=== PATIENT | female | born 1985 | race Caucasian/White ===

== ENCOUNTER 2016-12-07 10:45 | Emergency (ER) | payer OTHER ==
[~2016-12-07] VITALS: Ht 160 cm; Wt 54.0 kg
[~2016-12-07 10:45] MED LIST: ALBU6.7H INH; IBUP-238 PO; OXYC-360 PO; PREN0.01 PO
[2016-12-07 10:47] VITALS: BP 125/71; PULSE 83; RESP 20; TEMP 97.5; O2SAT 99
--- NOTE | 2016-12-07 12:23 | PD ---
HPI Chief Complaint: Related Problem Time Seen by Provider: 12:17 Travel History International Travel<30 days: No Contact w/Intl Traveler<30days: No Traveled to known affect area: No History of Present Illness HPI Patient is a 31-year-old female presenting to the emergency department for evaluation of nausea, vomiting, weakness. Patient reports being approximately 7 weeks . She reports being unable to keep down food or fluids. When she does eat only thing she is able to tolerate small amounts is starchy bland foods. She reports being weak and lying in bed for the last 5 days due to the weakness. She has been taking Zofran with no relief of her symptoms. She reports a 4-5 pound weight loss over that same time period. She also reported lower abdominal pain which she is attributing to round ligament pain. This is her third , she is not having any cramping, vaginal discharge, vaginal bleeding. She has not had a bowel movement in several days as well. Patient's past medical history significant for gestational diabetes, asthma, esophageal strictures, hypotension, anxiety, depression. Her NAILHEAD PUNCHER is Dr. Barragan at [facility]. She has not seen her for this , but she was advised to come to the emergency department due to the weakness by her office. [facility] Past Medical History Asthma: Yes Anxiety: Yes Depression: Yes Diabetes: Yes (gestational) Gastrointestinal Disorders: Yes (esophageal stricture) Medical other: Yes (hypotension the patient's report.) ?: LMP: 10/16/16 : 0 Past Surgical History Section: Yes (2) Other Surgery: Yes (upper endoscopy 2) Social History Alcohol Use: No (2 DRINKS PER WEEK) Tobacco Use: No (1/2 PK PER DAY) Substance Use: No Allergies-Medications (Allergen,Severity, Reaction): Coded Allergies: Adhesives (Verified Allergy, Severe, Rash, 12/07/16) Pork (Verified Allergy, Severe, Diarrhea, 12/07/16) Reported Meds & Prescriptions Reported Meds & Active Scripts Active Zofran (Ondansetron HCl) 4 Mg Tab 4 Mg PO Q6HR PRN Reported Effexor XR 24 HR (Venlafaxine HCl) 75 Mg Cap 75 Mg PO DAILY Review of Systems Except as stated in HPI: all other systems reviewed are Neg General / Constitutional: No: Fever, Chills HENT: No: Headaches Cardiovascular: No: Chest Pain or Discomfort Respiratory: No: Shortness of Breath Gastrointestinal: Positive: Nausea, Vomiting, Abdominal Pain, Constipation Genitourinary: No: Dysuria Neurologic: Positive: Weakness Physical Exam Narrative GENERAL: Thin, well-developed, alert female. Resting comfortably in no acute distress. at bedside. SKIN: Warm and dry. HEAD: Atraumatic. Normocephalic. EYES: Pupils equal and round. No scleral icterus. No injection or drainage. ENT: No nasal bleeding or discharge. Mucous membranes pink and moist. NECK: Trachea midline. No JVD. CARDIOVASCULAR: Regular rate and rhythm. No murmur appreciated. RESPIRATORY: No accessory muscle use. Clear to auscultation. Breath sounds equal bilaterally. GASTROINTESTINAL: Abdomen soft, non-tender, nondistended. Hepatic and splenic margins not palpable. MUSCULOSKELETAL: No obvious deformities. No clubbing. No cyanosis. No edema. NEUROLOGICAL: Awake and alert. No obvious cranial nerve deficits. Motor grossly within normal limits. Normal speech. PSYCHIATRIC: Appropriate mood and affect; insight and judgment normal. Data Data Last Documented VS Vital Signs Date Time Temp Pulse Resp B/P Pulse Ox O2 Delivery O2 Flow Rate FiO2 12/07/16 10:47 97.5 83 20 125/71 99 Room Air Orders Complete Blood Count With Diff (12/07/16 12:10) Comprehensive Metabolic Panel (12/07/16 12:10) Urinalysis - C+S If Indicated (12/07/16 12:10) Beta Hcg (Quant/Titer) (12/07/16 12:10) Ed Urine Pregnancytest Poc (12/07/16 12:10) Magnesium (Mg) (12/07/16 12:10) Ondansetron Inj (Zofran Inj) (12/07/16 13:00) Sodium Chlor 0.9% 1000 Ml Inj (Ns 1000 M (12/07/16 12:52) Labs Laboratory Tests Test 12/07/16 12/07/16 12:15 12:25 Urine Color LIGHT-YELLOW Urine Turbidity CLEAR Urine pH 6.5 Urine Specific [place] 1.003 Urine Protein NEG mg/dL Urine Glucose (UA) NEG mg/dL Urine Ketones NEG mg/dL Urine Occult Blood NEG Urine Nitrite NEG Urine Bilirubin NEG Urine Urobilinogen LESS THAN 2.0 MG/DL Urine Leukocyte Esterase NEG Urine RBC LESS THAN 1 /hpf Urine Squamous Epithelial <1 /hpf Cells Microscopic Urinalysis Comment CULT NOT INDICATED White Blood Count 10.6 TH/MM3 Red Blood Count 4.56 MIL/MM3 Hemoglobin 13.9 GM/DL Hematocrit 41.3 % Mean Corpuscular Volume 90.7 FL Mean Corpuscular Hemoglobin 30.5 PG Mean Corpuscular Hemoglobin 33.6 % Concent Red Cell Distribution Width 12.9 % Platelet Count 249 TH/MM3 Mean Platelet Volume 8.3 FL Neutrophils (%) (Auto) 69.6 % Lymphocytes (%) (Auto) 21.9 % Monocytes (%) (Auto) 8.1 % Eosinophils (%) (Auto) 0.2 % Basophils (%) (Auto) 0.2 % Neutrophils # (Auto) 7.4 TH/MM3 Lymphocytes # (Auto) 2.3 TH/MM3 Monocytes # (Auto) 0.9 TH/MM3 Eosinophils # (Auto) 0.0 TH/MM3 Basophils # (Auto) 0.0 TH/MM3 CBC Comment DIFF FINAL Differential Comment Sodium Level 139 MEQ/L Potassium Level 4.0 MEQ/L Chloride Level 102 MEQ/L Carbon Dioxide Level 27.8 MEQ/L Anion Gap 9 MEQ/L Blood Urea Nitrogen 8 MG/DL Creatinine 0.57 MG/DL Estimat Glomerular Filtration 125 ML/MIN Rate Random Glucose 75 MG/DL Calcium Level 9.2 MG/DL Magnesium Level 2.1 MG/DL Total Bilirubin 0.3 MG/DL Aspartate Amino Transf 8 U/L (AST/SGOT) Alanine Aminotransferase 18 U/L (ALT/SGPT) Alkaline Phosphatase 62 U/L Total Protein 7.4 GM/DL Albumin 3.8 GM/DL Human Chorionic Gonadotropin, 17868 MIU/ML Quant [facility] Medical Decision Making Medical Screen Exam Complete: Yes Emergency Medical Condition: Yes Interpretation(s) Vital Signs Date Time Temp Pulse Resp B/P Pulse Ox O2 Delivery O2 Flow Rate FiO2 12/07/16 10:47 97.5 83 20 125/71 99 Room Air Differential Diagnosis Gastroenteritis versus hyperemesis gravidarum versus morning sickness versus electrolyte abnormality versus other Narrative Course Patient is a 31-year-old female presenting to emergency department for evaluation of weakness, nausea, vomiting. Patient was sent by her NAILHEAD PUNCHER's office. She is a patient of Dr. Barragan at [place]. She denies any history of hyperemesis gravidarum. Patient's vital signs are stable. Workup initiated in triage, care of patient will be transferred to provider when medical bed is available. Scripts Ondansetron (Zofran)4 Mg Tab4 Mg PO Q6HR PRN (NAUSEA OR VOMITING) #15 TAB Ref 0 Prov:Donna Malone DO 12/07/16 Meredith Ayon Dec 07, 2016 12:23
[2016-12-07] MEDS ORDERED: VENL75XR PO (12:29)
[2016-12-07 12:42] LABS: AUTOMATED NEUTROPHIL # 7.4 TH/MM3 (1.8-7.7); BASOPHIL % 0.2 % (0.0-2.0); EOSINOPHIL % 0.2 % (0.0-4.0); HEMATOCRIT 41.3 % (35.0-46.0); HEMO FLAGS DIFF FINAL; LYMPH % 21.9 % (9.0-44.0); LYMPHOCYTE # 2.3 TH/MM3 (1.0-4.8); MEAN CELL VOLUME 90.7 FL (80.0-100.0); MEAN CORPUSCULAR HEMOGLOBIN 30.5 PG (27.0-34.0); MEAN CORPUSCULAR HGB CONC 33.6 % (32.0-36.0); MONO % 8.1 % (0.0-8.0); NEUT % 69.6 % (16.0-70.0); PLATELET COUNT 249 TH/MM3 (150-450); RED BLOOD COUNT 4.56 MIL/MM3 (4.00-5.30); RED CELL DISTRIBUTION WIDTH 12.9 % (11.6-17.2); WHITE BLOOD COUNT 10.6 TH/MM3 (4.0-11.0)
[2016-12-07] MEDS ORDERED: SODIUM CHLOR 0.9% 1000 ML INJ 1,000 ML IV SCH (12:52)
[2016-12-07 13:00] LABS: BLOOD, URINE NEG (NEG); GLUCOSE,URINE NEG (NEG); KETONE, URINE NEG (NEG); NITRITE,URINE NEG (NEG); PH, URINE 6.5 (5.0-8.5); SQUAMOUS EPITHELIAL CELL URINE <1 /hpf (0-5); URINE COLOR LIGHT-YELLOW (YELLW/STRAW)
[2016-12-07] MEDS ORDERED: ONDANSETRON HCL 4 MG/2 ML VIAL IVP ONE (13:00)
[2016-12-07 13:01] LABS: ANION GAP 9 MEQ/L (5-15); AST (GOT) 8 U/L (15-37); BICARBONATE 27.8 MEQ/L (21.0-32.0); BLOOD UREA NITROGEN 8 MG/DL (7-18); CHLORIDE 102 MEQ/L (98-107); GLOMERULAR FILTRATION RATE 125 ML/MIN (>89); MAGNESIUM 2.1 MG/DL (1.5-2.5); SODIUM (NA) 139 MEQ/L (136-145)
--- NOTE | 2016-12-07 13:02 | PD ---
Physical Exam Time Seen by Provider: 13:00 Narrative 31-year-old female approximately 7 weeks presents to the emergency department for evaluation of weakness, nausea and vomiting. Patient was seen by provider in triage were initiated workup, please see her documentation. The patient states for the past 5 days she's had weakness and basically been lying in bed past 5 days. States that she has had nausea and vomiting but was prescribed Zofran by her brick grader 3 days ago which did improve her vomiting. States that she has been able to eat and drink but very little. States that her last bowel movement was 2 days ago and was small. States that she has some epigastric crampy abdominal pain. Denies any fever, chills, diarrhea, vaginal discharge, vaginal bleeding, burning with urination, painful urination, hematuria. Prior abdominal surgeries include sections 2. CHILDREN'S TUTOR is Dr. Barragan. No other complaints. GENERAL: Well-nourished and well-developed pleasant female patient in no acute distress. SKIN: Warm and dry. HEAD: Normocephalic and atraumatic. EYES: No injection, drainage, or hyphema noted. PERRLA. EOMI. ENT: No nasal drainage noted. Oropharynx is clear. NECK: Supple and the trachea is midline. CARDIOVASCULAR: Regular rate and rhythm. RESPIRATORY: Breath sounds are equal bilaterally with no accessory muscle use, wheezing, rhonchi, or crackles. GASTROINTESTINAL: Abdomen is soft, non-tender, and nondistended. No rebound tenderness or guarding. MUSCULOSKELETAL: No obvious deformities, swelling, cyanosis, or ecchymosis is present throughout the upper and lower extremities. Patient has full range of motion without any signs of neurovascular compromise. NEUROLOGICAL: Awake, alert, and oriented. Normal speech and gait. Cranial nerves are grossly intact. Data Data Last Documented VS Vital Signs Date Time Temp Pulse Resp B/P Pulse Ox O2 Delivery O2 Flow Rate FiO2 12/07/16 10:47 97.5 83 20 125/71 99 Room Air Orders Complete Blood Count With Diff (12/07/16 12:10) Comprehensive Metabolic Panel (12/07/16 12:10) Urinalysis - C+S If Indicated (12/07/16 12:10) Beta Hcg (Quant/Titer) (12/07/16 12:10) Ed Urine Pregnancytest Poc (12/07/16 12:10) Magnesium (Mg) (12/07/16 12:10) Ondansetron Inj (Zofran Inj) (12/07/16 13:00) Sodium Chlor 0.9% 1000 Ml Inj (Ns 1000 M (12/07/16 12:52) Labs Laboratory Tests Test 12/07/16 12/07/16 12:15 12:25 Urine Color LIGHT-YELLOW Urine Turbidity CLEAR Urine pH 6.5 Urine Specific [place] 1.003 Urine Protein NEG mg/dL Urine Glucose (UA) NEG mg/dL Urine Ketones NEG mg/dL Urine Occult Blood NEG Urine Nitrite NEG Urine Bilirubin NEG Urine Urobilinogen LESS THAN 2.0 MG/DL Urine Leukocyte Esterase NEG Urine RBC LESS THAN 1 /hpf Urine Squamous Epithelial <1 /hpf Cells Microscopic Urinalysis Comment CULT NOT INDICATED White Blood Count 10.6 TH/MM3 Red Blood Count 4.56 MIL/MM3 Hemoglobin 13.9 GM/DL Hematocrit 41.3 % Mean Corpuscular Volume 90.7 FL Mean Corpuscular Hemoglobin 30.5 PG Mean Corpuscular Hemoglobin 33.6 % Concent Red Cell Distribution Width 12.9 % Platelet Count 249 TH/MM3 Mean Platelet Volume 8.3 FL Neutrophils (%) (Auto) 69.6 % Lymphocytes (%) (Auto) 21.9 % Monocytes (%) (Auto) 8.1 % Eosinophils (%) (Auto) 0.2 % Basophils (%) (Auto) 0.2 % Neutrophils # (Auto) 7.4 TH/MM3 Lymphocytes # (Auto) 2.3 TH/MM3 Monocytes # (Auto) 0.9 TH/MM3 Eosinophils # (Auto) 0.0 TH/MM3 Basophils # (Auto) 0.0 TH/MM3 CBC Comment DIFF FINAL Differential Comment Sodium Level 139 MEQ/L Potassium Level 4.0 MEQ/L Chloride Level 102 MEQ/L Carbon Dioxide Level 27.8 MEQ/L Anion Gap 9 MEQ/L Blood Urea Nitrogen 8 MG/DL Creatinine 0.57 MG/DL Estimat Glomerular Filtration 125 ML/MIN Rate Random Glucose 75 MG/DL Calcium Level 9.2 MG/DL Magnesium Level 2.1 MG/DL Total Bilirubin 0.3 MG/DL Aspartate Amino Transf 8 U/L (AST/SGOT) Alanine Aminotransferase 18 U/L (ALT/SGPT) Alkaline Phosphatase 62 U/L Total Protein 7.4 GM/DL Albumin 3.8 GM/DL Human Chorionic Gonadotropin, 155[address] MIU/ML Quant MDM Supervised Visit with STEPHANIE: No Differential Diagnosis Dehydration versu electrolyte abnormality versus UTI versus early Narrative Course 31-year-old female presents the emergency department for evaluation of weakness for 5 days with nausea and vomiting in early . Patient is afebrile, vital signs are stable. Abdominal examination is benign. She's had no bleeding or spotting. IV access is obtained, labs were drawn and sent. Patient is administered IV fluids and Zofran. CBC is unremarkable. CMP is unremarkable. Urinalysis unremarkable. Patient has remained stable without complaint here in the emergency department. I did discuss the patient with her CHILDREN'S TUTOR and she recommends discharge and follow-up as an outpatient. The patient verbalizes understanding and is in agreement with the treatment plan. I discussed the case with my attending physician Dr. Malone who is aware of the patients history, physical examination findings, and treatment plan. Physician Communication Physician Communication I spoke with Dr. Barragan the patient's CHILDREN'S TUTOR regarding the patient's presentation and unremarkable lab findings. She recommended IV fluids and patient can be discharged follow-up in the office. Diagnosis Primary Impression: Generalized weakness Additional Impression: Qualified Code: Z3A.01 - Less than 8 weeks gestation of Referrals: Jo Barragan MD Patient Instructions: First Trimester (ED), General Instructions, Weakness (ED) Additional Instruction: Follow-up with Dr. Barragan in the office as scheduled. Return to the ED for any acute worsening of symptoms. Med/Other Pt SpecificInfo: Prescription(s) given Disposition: 01 DISCHARGE HOME Condition: Stable Tashia Veliz Dec 07, 2016 13:02
[2016-12-07 13:13] LABS: COMMENT (UR) CULT NOT INDICATED; CULTURE IF INDICATED CULT NOT INDICATED
[2016-12-07 13:18] LABS: ALKALINE PHOSPHATASE 62 U/L (45-117); ALT (GPT) 18 U/L (10-53); BETA HCG QUANT 53602 MIU/ML (0-5); TOTAL BILIRUBIN ADULT 0.3 MG/DL (0.2-1.0)
[2016-12-07] MEDS ORDERED: ZOFR4TAB PO (13:36)
== END 2016-12-07 14:11 | disposition home or self-care (01) ==
LOC: NEPC 10:45
DX: O26.891 Other specified pregnancy related conditions, first trimester (principal); R53.1 Weakness; R10.30 Lower abdominal pain, unspecified; O21.9 Vomiting of pregnancy, unspecified; Z87.09 Personal history of other diseases of the respiratory system; Z86.59 Personal history of other mental and behavioral disorders; Z87.19 Personal history of other diseases of the digestive system; Z3A.01 Less than 8 weeks gestation of pregnancy
CPT/HCPCS: 80053; 81001; 83735; 84702; 84703; 85025; 96374; 99284; J2405; J7030

== ENCOUNTER 2017-04-07 12:17 | Inpatient (IN) | payer MEDICAID ==
[~2017-04-07] VITALS: Ht 160 cm; Wt 75.0 kg
[~2017-04-07 12:17] MED LIST changes: -ALBU6.7H INH; -IBUP-238 PO; -OXYC-360 PO; -PREN0.01 PO; +VENL75XR PO; +ZOFR4TAB PO
--- NOTE | 2017-07-14 13:05 | MH ---
cc: KAT MOREAU DATE OF ADMISSION 07/16/2017 HISTORY OF PRESENT ILLNESS This is a 31-year-old 3, para 2 intrauterine at 39 weeks, previous x2 for repeat with a tubal ligation. care has been with [facility] uncomplicated. Group B strep was negative. GCT was 66. PAST OB HISTORY Significant for a x2. 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 She had a normal Pap smear in December 2016. PAST MEDICAL HISTORY Significant for: 1. Major depression 2. She has a history of asthma. PAST SURGICAL HISTORY x2 MEDICATIONS She takes Vitamins and Effexor. ALLERGIES She has no known drug allergies. PHYSICAL EXAM VITAL SIGNS: Stable. She is afebrile. Blood pressure is 120/64. She is 177 pounds. HEAD, HEART, CHEST AND LUNG: Exams are within normal limits. ABDOMEN: Soft, nontender, gravid. PELVIC: Long, closed and posterior. EXTREMITIES: No edema, cyanosis or clubbing, nontender. ASSESSMENT/PLAN She is a 31-year-old, gravid 3, para 2 intrauterine at 39 weeks for a repeat and tubal ligation. The risks, benefits, and alternatives have been explained to the patient and all of her questions have been answered. MD JETHRO Hardwick/OTONIEL /12:42 PM /12:49 PM AWILDA
[2017-07-16] MEDS ORDERED: LACTATED RINGER'S 1000 ML IV ONE (06:15)
[2017-07-16] MEDS ORDERED: CITRIC ACID-SODIUM CITRATE LIQ 30 ML UDC PO SCH (06:15)
[2017-07-16] MEDS ORDERED: ceFAZolin 1,000 MG/NS 100 ML IV SCH ×2 (06:15)
[2017-07-16] MEDS ORDERED: LACTATED RINGER'S 1000 ML IV SCH (06:15)
[2017-07-16 06:19] VITALS: BP 113/67; PULSE 87
[2017-07-16] MEDS ORDERED: PREN29TA PO (06:27)
[2017-07-16 06:30] VITALS: RESP 18; TEMP 97.7
[2017-07-16 06:46] VITALS: BP 109/68; PULSE 86
[2017-07-16 07:26] LABS: BASOPHIL # 0.1 TH/MM3 (0-0.2); BASOPHIL % 0.5 % (0.0-2.0); EOSINOPHIL # 0.7 TH/MM3 (0-0.4); EOSINOPHIL % 4.3 % (0.0-4.0); HEMATOCRIT 38.2 % (35.0-46.0); HEMO FLAGS DIFF FINAL; LYMPH % 17.8 % (9.0-44.0); MEAN CELL VOLUME 95.3 FL (80.0-100.0); MEAN CORPUSCULAR HGB CONC 33.6 % (32.0-36.0); MONO % 6.7 % (0.0-8.0); NEUT % 70.7 % (16.0-70.0); PLATELET COUNT 257 TH/MM3 (150-450); RED CELL DISTRIBUTION WIDTH 13.3 % (11.6-17.2)
[2017-07-16 07:30] LABS: BACTERIA, URINE RARE /hpf; BLOOD, URINE NEG (NEG); COMMENT (UR) CULT NOT INDICATED; CULTURE IF INDICATED CULT NOT INDICATED; GLUCOSE,URINE NEG (NEG); KETONE, URINE NEG (NEG); MUCUS URINE FEW /lpf (OCC); NITRITE,URINE NEG (NEG); SQUAMOUS EPITHELIAL CELL URINE 1 /hpf (0-5); URINE COLOR LIGHT-YELLOW (YELLW/STRAW)
[2017-07-16] MEDS ORDERED: KETOROLAC TROMETHAMINE 60 MG/2 ML (IM) VIAL IM PRN (08:30)
[2017-07-16] MEDS ORDERED: ONDANSETRON HCL 4 MG/2 ML VIAL IV PUSH PRN (08:30)
[2017-07-16] MEDS ORDERED: SODIUM CHLORIDE 0.9% FLUSH 10 ML FLUSH IV FLUSH PRN (08:30)
[2017-07-16] MEDS ORDERED: SIMETHICONE 80 MG CHEWABLE TAB PO PRN (08:30)
[2017-07-16] MEDS ORDERED: SERTRALINE HCL 50 MG TAB PO ONE (08:30)
[2017-07-16] MEDS ORDERED: ZOLPIDEM TARTRATE 5 MG TAB PO PRN (08:30)
[2017-07-16] MEDS ORDERED: OXYTOCIN 30 UNITS-500ML PREMIX 500 ML IV ONE (08:30)
[2017-07-16] MEDS ORDERED: SODIUM CHLORIDE 0.9% FLUSH 10 ML FLUSH IV FLUSH SCH (09:00)
--- NOTE | 2017-07-16 09:01 | MP ---
cc: KAT BARRAGAN DATE OF SURGERY: 07/16/2017 PREOPERATIVE DIAGNOSIS Intrauterine at 39 weeks, previous section, desires repeat section and permanent sterilization. POSTOPERATIVE DIAGNOSIS Intrauterine at 39 weeks, previous section, desires repeat section and permanent sterilization. PROCEDURE 1. Repeat lower segment transverse section via Pfannenstiel skin incision. 2. Bilateral tubal ligation via modified [place]. SURGEON Dr. Barragan. ANESTHESIA Spinal. FLUIDS 700 cc crystalloid. ESTIMATED BLOOD LOSS 650 cc. URINE OUTPUT 75 cc clear yellow at the end of the procedure. FINDINGS A live male was delivered vertex presentation. weight was 3340 grams (7 pounds 6 ounces), Apgars 8 at one minute and 9 at five minutes. Time of delivery was 0755. DETAILS OF PROCEDURE The patient was taken to the operating room where spinal anesthesia was found to be adequate. She was prepped and draped in a normal sterile fashion in the dorsal supine position with a leftward tilt. A Pfannenstiel skin incision was made with a scalpel and carried down to the underlying layer of fascia. The fascia was nicked in the midline and the incision was extended laterally with curved Andre scissors. Attention was turned to the inferior aspect of the incision which was grasped with Jessica clamps, elevated, and the rectus muscles dissected off sharply. Attention was turned to the superior aspect of the incision which was grasped with Jessica clamps, elevated and the rectus muscles dissected off sharply. The rectus muscles were in the midline. The peritoneum was identified, grasped between two Yvette clamps, elevated and entered sharply with Metzenbaum scissors. This incision was extended superiorly and inferiorly with good visualization of the bladder. A bladder blade was inserted. The vesicouterine peritoneum was identified, grasped with pickups and entered sharply with Metzenbaum scissors. This incision was extended laterally and the bladder flap created sharply. The lower uterine segment was incised in a transverse fashion with a scalpel. This was extended laterally with bandage scissors. Clear amniotic fluid was noted. The vertex was delivered. The oral and nasopharynx were bulb suctioned with a syringe. The shoulders were delivered atraumatically. The cord was clamped x2 and cut. The was handed off to the awaiting nurse. The placenta was delivered manually and sent for donation. The uterus was cleared of all clots and debris. The uterus was closed in two layers with #1 Vicryl. Hemostasis was assured. The bladder flap was closed in a running fashion with 3-0 chromic. The left fallopian tube was identified, brought to the incision, grasped with a [place] clamp, followed out to the fimbriated end. A 2 cm portion was tied x2 with 0 plain, excised and sent to pathology. The tube was returned to the abdomen. The right fallopian tube was identified, grasped with a [place] clamp, followed out to the fimbriated end. A 2 cm portion was tied x2 with 0 plain and excised in a similar fashion. Hemostasis was assured. The tube was returned to the abdomen. The gutters were cleared of all clots and debris. The peritoneum was re-approximated in the midline with a single suture of 3-0 chromic. The fascia was re-approximated in a running fashion with 0 Vicryl. The skin was closed with kasandra. A pressure dressing was applied. The patient was transferred to the recovery room in stable condition. The sponge, lap, needle and instrument counts were correct x3. MD JETHRO Hardwick/AYE /8:31 AM /8:38 AM MTDCelso
[2017-07-16] MEDS ORDERED: KETOROLAC TROMETHAMINE 30 MG/ML (IVP) VIAL ONE ×2 (09:20→09:23)
[2017-07-16] MEDS ORDERED: OXYTOCIN 30 UNITS-500ML PREMIX 500 ML ONE (09:29)
[2017-07-16] MEDS ORDERED: ONDANSETRON HCL 4 MG/2 ML VIAL IV PUSH ONE (12:00)
[2017-07-16] MEDS ORDERED: PHENYLEPH/NS 1000 MCG/10 ML SYR IV ONE (12:00)
[2017-07-16] MEDS ORDERED: MORPHINE SULFATE PF 5 MG/10 ML VIAL ONE (12:00)
[2017-07-16] MEDS ORDERED: OXYTOCIN 10 UNIT/ML AMP IV ONE (12:00)
[2017-07-16] MEDS ORDERED: LACTATED RINGER'S 1000 ML INJ 1,000 ML IV SCH (13:23)
[2017-07-16] MEDS ORDERED: MORPHINE SULFATE 8 MG/ML INJ IV PUSH ONE (14:00)
[2017-07-16] MEDS ORDERED: OXYTOCIN 30 UNITS-500ML PREMIX 500 ML IV PRN (18:30)
[2017-07-16] MEDS: ACETAMINOPHEN/HYDROcodone 325 MG/5 MG TAB PO PRN ×2 (18:35→22:21)
[2017-07-16] MEDS: DOCUSATE SODIUM 50 MG/SENNA 8.6 MG TAB PO PRN (18:35)
[2017-07-16] MEDS: IBUPROFEN 600 MG TAB PO PRN (18:36)
[2017-07-16 20:30] VITALS: BP 89/59; PULSE 59; RESP 18
[2017-07-17] VITALS: BP 101/63; PULSE 64; RESP 18; TEMP 98.2
[2017-07-17] MEDS: IBUPROFEN 600 MG TAB PO PRN ×4 (00:34→17:50)
[2017-07-17 04:00] VITALS: BP 97/58; PULSE 66; RESP 18; TEMP 98.1
[2017-07-17] MEDS: ACETAMINOPHEN/HYDROcodone 325 MG/5 MG TAB PO PRN ×2 (05:13→11:26)
[2017-07-17] MEDS: DOCUSATE SODIUM 50 MG/SENNA 8.6 MG TAB PO PRN ×2 (07:41→22:09)
[2017-07-17 08:49] LABS: AUTOMATED NEUTROPHIL # 12.8 TH/MM3 (1.8-7.7); BASOPHIL # 0.1 TH/MM3 (0-0.2); BASOPHIL % 0.4 % (0.0-2.0); EOSINOPHIL # 0.6 TH/MM3 (0-0.4); EOSINOPHIL % 3.7 % (0.0-4.0); HEMATOCRIT 31.8 % (35.0-46.0); HEMO FLAGS DIFF FINAL; LYMPH % 14.7 % (9.0-44.0); LYMPHOCYTE # 2.5 TH/MM3 (1.0-4.8); MEAN CELL VOLUME 95.7 FL (80.0-100.0); MEAN CORPUSCULAR HEMOGLOBIN 31.9 PG (27.0-34.0); MEAN CORPUSCULAR HGB CONC 33.3 % (32.0-36.0); MONO % 6.9 % (0.0-8.0); NEUT % 74.3 % (16.0-70.0); PLATELET COUNT 176 TH/MM3 (150-450); RED BLOOD COUNT 3.32 MIL/MM3 (4.00-5.30); WHITE BLOOD COUNT 17.2 TH/MM3 (4.0-11.0)
[2017-07-17] MEDS ORDERED: INFLUENZA VIRUS VACCINE (QUADRIVALENT) 0.5 ML SYR IM ONE ×2 (09:00→17:45)
--- NOTE | 2017-07-17 15:49 | HHI.OB ---
Subjective Post Operative Day: 1 Remarks Doing well Pain is not well controlled Bleeding is normal Baby is doing well Objective Vitals/I&O Vital Signs Date Time Temp Pulse Resp B/P (MAP) Pulse Ox O2 Delivery O2 Flow Rate FiO2 07/17/17 04:00 98.1 07/17/17 04:00 66 18 97/58 (71) 07/17/17 00:00 98.2 64 18 101/63 (76) 07/16/17 20:30 59 18 07/16/17 20:30 89/59 (69) Result Diagram: 07/17/17 0800 Objective Remarks GENERAL: Well-nourished, well-developed patient. CARDIOVASCULAR: Regular rate and rhythm without murmurs, gallops, or rubs. RESPIRATORY: Breath sounds equal bilaterally. No accessory muscle use. ABDOMEN/GI: Abdomen soft, non-tender, bowel sounds present. Incision: Clean, dry and intact. Fundus: Firm, non-tender at umbilicus. GENITOURINARY: Light to moderate bleeding. EXTREMITIES: No cyanosis or edema, non-tender, without signs of DVT. Medications and IVs Current Medications Medications (Trade) Dose Ordered Sig/[place] Route Start Time Stop Time Status Last Admin Oxytocin 500 ml @ 100 mls/hr UNSCH X1 PRN IV 07/16/17 18:30 07/17/17 18:29 (NS Flush) 2 ml BID IV FLUSH 07/16/17 09:00 (NS Flush) 2 ml UNSCH PRN IV FLUSH 07/16/17 08:30 (Mylicon Chew) 80 mg QID PRN PO 07/16/17 08:30 (Motrin) 600 mg Q6H PRN PO 07/16/17 08:30 07/17/17 11:36 ([place]-Colace) 2 tab Q12H PRN PO 07/16/17 08:30 07/17/17 07:41 (Ambien) 5 mg HS PRN PO 07/16/17 08:30 (M-M-R Ii Inj) 0.5 ml ONCE ONCE SQ 07/17/17 16:00 07/17/17 16:01 (Boostrix Inj) 0.5 ml ONCE ONCE IM 07/17/17 16:00 07/17/17 16:01 (Zofran Inj) 4 mg Q6H PRN IV PUSH 07/16/17 08:30 ([place] 5-325 Mg) 1 tab Q6H PRN PO 07/16/17 08:30 07/17/17 11:26 Assessment/Plan Assessment and Plan POD #1 Pain is not well controlled on the 5 mg norco. Doing well Routine care Geovani Fischer MD Jul 17, 2017 15:49
[2017-07-17] MEDS ORDERED: MORPHINE SULFATE 8 MG/ML INJ IM ONE (16:00)
[2017-07-17] MEDS ORDERED: MEASLES, MUMPS, RUBELLA VACCINE 0.5 ML VIAL SQ ONE (16:00)
[2017-07-17] MEDS ORDERED: DIPHTH/TETANUS/ACEL PERTUSSIS (BOOSTER) 0.5 ML VIAL/PFS IM ONE (16:00)
[2017-07-17] MEDS: ACETAMINOPHEN/HYDROcodone 325 MG/10 MG TAB PO PRN ×2 (17:50→22:10)
[2017-07-17 20:30] VITALS: BP 106/60; PULSE 73; RESP 18; TEMP 98.4
[2017-07-18] MEDS: IBUPROFEN 600 MG TAB PO PRN ×4 (00:34→20:03)
[2017-07-18] MEDS: ACETAMINOPHEN/HYDROcodone 325 MG/10 MG TAB PO PRN ×5 (02:26→20:04)
[2017-07-18] MEDS: SERTRALINE HCL 100 MG TAB PO SCH (08:47)
--- NOTE | 2017-07-18 15:52 | HHI.OB ---
Subjective Post Operative Day: 2 Remarks Doing well Baby is doing well Bleeding is normal Pain is controlled much better on 10 mg norco Objective Vitals/I&O Vital Signs Date Time Temp Pulse Resp B/P (MAP) Pulse Ox O2 Delivery O2 Flow Rate FiO2 07/17/17 20:30 98.4 73 18 106/60 (75) Result Diagram: 07/17/17 0800 Objective Remarks GENERAL: Well-nourished, well-developed patient. CARDIOVASCULAR: Regular rate and rhythm without murmurs, gallops, or rubs. RESPIRATORY: Breath sounds equal bilaterally. No accessory muscle use. ABDOMEN/GI: Abdomen soft, non-tender, bowel sounds present. Incision: Clean, dry and intact. Fundus: Firm, non-tender at umbilicus. GENITOURINARY: Light to moderate bleeding. EXTREMITIES: No cyanosis or edema, non-tender, without signs of DVT. Medications and IVs Current Medications Medications (Trade) Dose Ordered Sig/[place] Route Start Time Stop Time Status Last Admin (NS Flush) 2 ml BID IV FLUSH 07/16/17 09:00 (NS Flush) 2 ml UNSCH PRN IV FLUSH 07/16/17 08:30 (Mylicon Chew) 80 mg QID PRN PO 07/16/17 08:30 (Motrin) 600 mg Q6H PRN PO 07/16/17 08:30 07/18/17 12:59 ([place]-Colace) 2 tab Q12H PRN PO 07/16/17 08:30 07/17/17 22:09 (Ambien) 5 mg HS PRN PO 07/16/17 08:30 (Zofran Inj) 4 mg Q6H PRN IV PUSH 07/16/17 08:30 ([place] 10-325 Mg) 1 tab Q4H PRN PO 07/17/17 16:00 07/18/17 14:51 (Zoloft) 100 mg DAILY PO 07/18/17 09:00 07/18/17 08:47 Assessment/Plan Assessment and Plan POD #2 Anemia will start fe after the percocet Doing well Pain is now controlled D/C home tomorrow Geovani Fischer MD Jul 18, 2017 15:52
[2017-07-18] MEDS ORDERED: ZOLO100T PO (16:02)
[2017-07-18] MEDS ORDERED: HYDR-3583 PO (16:02)
[2017-07-18] MEDS ORDERED: IBUP-232 PO (16:02)
--- NOTE | 2017-07-18 16:03 | HHI.DCPOC ---
Discharge Care Plan Diagnosis: (1) delivery delivered (2) Depression Report Symptoms to Your Doctor -Temperature above 100.5 degrees -Redness, of incision or excessive or foul smelling drainage -Unusual pain or calf pain -Increased vaginal bleeding -Painful or difficulty urinating -Feelings of extreme sadness or anxiety after 2 weeks Goals to Promote Your Health * To prevent worsening of your condition and complications * To maintain your health at the optimal level Directions to Meet Your Goals Take your medications as prescribed Follow your dietary instruction Follow activity as directed Ensure plenty of rest for recovery Drink fluids for hydration Keep your appointments as scheduled Take your immunizations and boosters as scheduled If your symptoms worsen call your PCP, if no PCP go to Urgent Care Center or Emergency Room Smoking is Dangerous to Your Health. Avoid second hand smoke Call the 24-hour crisis hotline for domestic abuse at Geovani Fischer MD Jul 18, 2017 16:03
[2017-07-18 20:00] VITALS: BP 125/72; PULSE 78; RESP 18; TEMP 98.2
[2017-07-18] MEDS: DOCUSATE SODIUM 50 MG/SENNA 8.6 MG TAB PO PRN (20:02)
[2017-07-19] MEDS: ACETAMINOPHEN/HYDROcodone 325 MG/10 MG TAB PO PRN ×4 (00:30→12:43)
[2017-07-19] MEDS: IBUPROFEN 600 MG TAB PO PRN ×2 (05:01→11:18)
[2017-07-19 08:00] VITALS: BP 101/70; PULSE 78; RESP 16; TEMP 97.8
--- NOTE | 2017-07-19 08:18 | HHI.OB ---
Subjective Post Operative Day: 3 Remarks doing well, no complaints Objective Vitals/I&O Vital Signs Date Time Temp Pulse Resp B/P (MAP) Pulse Ox O2 Delivery O2 Flow Rate FiO2 07/18/17 20:00 98.2 78 18 125/72 (89) Result Diagram: 07/17/17 0800 Objective Remarks GENERAL: Well-nourished, well-developed patient. CARDIOVASCULAR: Regular rate and rhythm without murmurs, gallops, or rubs. RESPIRATORY: Breath sounds equal bilaterally. No accessory muscle use. ABDOMEN/GI: Abdomen soft, non-tender, bowel sounds present. Incision: Clean, dry and intact. Fundus: Firm, non-tender at umbilicus. GENITOURINARY: Light to moderate bleeding. EXTREMITIES: No cyanosis or edema, non-tender, without signs of DVT. Medications and IVs Current Medications Medications (Trade) Dose Ordered Sig/[place] Route Start Time Stop Time Status Last Admin (NS Flush) 2 ml BID IV FLUSH 07/16/17 09:00 (NS Flush) 2 ml UNSCH PRN IV FLUSH 07/16/17 08:30 (Mylicon Chew) 80 mg QID PRN PO 07/16/17 08:30 (Motrin) 600 mg Q6H PRN PO 07/16/17 08:30 07/19/17 05:01 ([place]-Colace) 2 tab Q12H PRN PO 07/16/17 08:30 07/18/17 20:02 (Ambien) 5 mg HS PRN PO 07/16/17 08:30 (Zofran Inj) 4 mg Q6H PRN IV PUSH 07/16/17 08:30 ([place] 10-325 Mg) 1 tab Q4H PRN PO 07/17/17 16:00 07/19/17 05:02 (Zoloft) 100 mg DAILY PO 07/18/17 09:00 07/18/17 08:47 Assessment/Plan Assessment and Plan POD #3 Doing well Pain is now controlled D/C home today Discharge Planning today Attending Attestation pt seen by Jo Duong MD Jul 19, 2017 08:18
[2017-07-19] MEDS: SERTRALINE HCL 100 MG TAB PO SCH (08:56)
[2017-07-19] MEDS: DOCUSATE SODIUM 50 MG/SENNA 8.6 MG TAB PO PRN (08:57)
== END 2017-07-19 12:56 | disposition home or self-care (01) | DRG 766 ==
LOC: H2EB 07-16 05:55 → H1EA 07-16 09:52
PROVIDERS: ADMIT Obstetrics & Gynecology; ATTEND Obstetrics & Gynecology
PROC: 10D00Z1 Extraction of Products of Conception, Low, Open Approach (ICD-10-PCS; principal; 2017-07-16)
PROC: 0UB70ZZ Excision of Bilateral Fallopian Tubes, Open Approach (ICD-10-PCS; 2017-07-16)
DX: O34.219 Maternal care for unspecified type scar from previous cesarean delivery (principal); O99.344 Other mental disorders complicating childbirth; F32.9 Major depressive disorder, single episode, unspecified; O90.81 Anemia of the puerperium; Z37.0 Single live birth; Z3A.39 39 weeks gestation of pregnancy; Z30.2 Encounter for sterilization; Z23 Encounter for immunization
CPT/HCPCS: 59025; 81001; 85025; 86850; 86900; 86901; 88302; 90686; 90715; J0690; J1885; J2270; J2274; J2370; J2405; J2590; J3010; J7120; Q2038

== ENCOUNTER 2017-05-11 15:21 | Emergency (ER) | payer MEDICAID, OTHER ==
[~2017-05-11] VITALS: Ht 160 cm; Wt 72.6 kg
--- NOTE | 2017-05-11 16:40 | PD ---
HPI Chief Complaint pelvic pressure Date Seen: May 11, 2017 Time Seen: 16:15 Travel History International Travel<30 Days: No Contact w/Intl Traveler<30Days: No Known Affected Area: No History of Present Illness HPI Pt is a 31 y/o with IUP at 29.4 wks who presents for evaluation of pelvic pressure/pain. Pt states that she has been having pelvic pressure for past month, but acutely worse today. Normally pain occurs when she changes position or gets up from sitting, but has been constant today. PT reports occ BH contractions. She denies vb, lof. +FM Pt states she does wear belly band at work, but she does not have back support. PT denies dysuria, fever. PT reports mild constipation. Para: 2 : 3 History Past Medical History Narrative Medical depression Obstetric History Obstetric History 2011 FT primary 2013 FT repeat Past Surgical History Narrative Surgical x 2 upper endoscopy Family History Family History: Negative Social History Alcohol Use: No Tobacco Use: No Substance Abuse: No Allergies-Medications (Allergen,Severity, Reaction): Coded Allergies: Adhesives (Verified Allergy, Severe, Rash, 12/07/16) Pork (Verified Allergy, Severe, Diarrhea, 12/07/16) Home Meds Active Scripts Ondansetron (Zofran)4 Mg Tab4 Mg PO Q6HR PRN (NAUSEA OR VOMITING) #15 TAB Ref 0 Prov:FaisalDonna Aline COSTELLO 12/07/16 Reported Medications Venlafaxine ER 24 HR (Effexor XR 24 HR)75 Mg Cap75 Mg PO DAILY #30 CAP Ref 0 12/07/16 Narrative Medication states only taking PNV has discontinued effexor Review of Systems General / Constitutional: Weight Gain, No: Fever, Weight Loss, Chills, Other Eyes: No: Diploplia, Blurred Vision, Visual changes, Pain, Photophobia, Other HENT: No: Headaches, Vertigo, Dental Difficulties, Lightheadedness, Other Cardiovascular: No: Irregular Rhythm, Chest Pain or Discomfort, Palpitations, Tachycardia, Syncope, Varicosities, Edema, Cyanosis, Other Gastrointestinal: Abdominal Pain, Constipation Genitourinary: Frequency, Pelvic Pain, No: Urgency, Dysuria, Nocturia, Hematuria, Decreased Urinary Output, Oliguria, Hesitancy, Dribbling, Incontinence, Dyspareunia, Discharge, Menorrhagia, Vaginal Bleeding, Other Musculoskeletal: No: Limited ROM, Weakness, Cramping, Edema, Pain, Other Skin: No Rash, No Itching, No Dryness, No Lumps, No Change in Pigmentation, No Change in Nails, No Alopecia, No Lesions, No Breast Lumps, No Breast Tenderness , No Breast Swelling, No Other Neurologic: No: Weakness, Dizziness, Syncope, Focal Abnormalities, Coordination Problem, Headache, Slurred Speech, Seizures, Other Psychiatric: No: Anxiety, Depression, Suicidal Ideations, Disorder of Thought, Mood Disorder, Substance Abuse, Homicidal Ideation, Other Endocrine: No: Heat Intolerance, Cold Intolerance, Polydipsia, Polyuria, Other Hematologic/Lymphatic: No Easy Bruising, No Lymph Node Enlargement, No Other Physical Exam 96/54, 98.1, 91, 16 Narrative GENERAL: Well-nourished, well-developed patient. SKIN: Warm and dry. HEAD: Normocephalic and atraumatic. EYES: No scleral icterus. No injection or drainage. ENT: No nasal drainage noted. Mucous membranes pink. Airway patent. NECK: Supple, trachea midline. No JVD. CARDIOVASCULAR: Regular rate and rhythm without murmurs, gallops, or rubs. RESPIRATORY: Breath sounds equal bilaterally. No accessory muscle use. BREASTS: Bilateral exam showed no masses , no retractions, no nipple discharge. ABDOMEN/GI: Abdomen soft, non-tender, bowel sounds present, no rebound, no guarding Gravid GENITOURINARY: External Genitalia: intact and normal in appearance BUS glands: [snl] Cervix: posterior Dilatation: closed Effacement: long Station: -3 Presentation: - Membranes: intact Uterine Contractions: none FHT's: Category: 1 Baseline: 130 Reactive: yes Variability: mod Decels: none EXTREMITIES: No cyanosis or edema. BACK: Nontender without obvious deformity. No CVA tenderness. NEUROLOGICAL: Awake and alert. Motor and sensory grossly within normal limits. Five out of 5 muscle strength in all muscle groups. Normal speech. Data Data Vital Signs Reviewed: Yes Orders Vital Signs (Adult) .ON ADMISSION (05/11/17 16:26) ^ Labor Status (05/11/17 16:26) MDM Medical Record Reviewed: Yes ( records reviewed) Narrative Course / MDM 31 y/o with IUP at 29.4 wks and acute increase in pelvic discomfort/ pressure --no evidence of UTI (dip neg) --no evidence of PTL dx: musculoskeletal pain of . discussed supportive measures (belly band, back support, proper posture and body movement, stretching, tylenol, warm baths, massage) Diagnosis Diagnosis: Primary Impression: Pain of round ligament during Additional Impression: 29 weeks gestation of Disposition: 01 DISCHARGE HOME Condition: Stable Patient Instructions: Abdominal Pain in (ED) Kadeem Lacey MD May 11, 2017 16:40
== END 2017-05-11 18:55 | disposition home or self-care (01) ==
LOC: HOBED 15:21
DX: O26.893 Other specified pregnancy related conditions, third trimester (principal); R10.9 Unspecified abdominal pain; K59.00 Constipation, unspecified; O99.343 Other mental disorders complicating pregnancy, third trimester; Z3A.29 29 weeks gestation of pregnancy
CPT/HCPCS: 99284

== ENCOUNTER 2017-06-16 18:51 | Emergency (ER) | payer MEDICAID ==
--- NOTE | 2017-06-16 19:54 | PD ---
HPI Chief Complaint Abdominal cramping Travel History International Travel<30 Days: No Contact w/Intl Traveler<30Days: No Known Affected Area: No History of Present Illness HPI at 34w 5d, DENIA 07-23-17, presents with c/o lower abdominal cramping. Denies contractions/LOF/VB. Reports good movement. Denies urinary/bowel problems. Para: 2 : 3 History Past Medical History Medical History: Denies Significant Hx Obstetric History Obstetric History FT C/S x 2 Past Surgical History Surgical History: No Previous Surgery Family History Family History: Negative Social History Alcohol Use: No Tobacco Use: No Substance Abuse: No Allergies-Medications (Allergen,Severity, Reaction): Coded Allergies: Pork/Porcine Containing Products (Unverified Allergy, Severe, Diarrhea, ) adhesive (Unverified Allergy, Severe, Rash, 05/18/17) Home Meds Active Scripts Ondansetron (Zofran) 4 Mg Tab, 4 MG PO Q6HR Y for NAUSEA OR VOMITING, #15 TAB 0 Refills Prov:Donna Malone DO 12/07/16 Reported Medications Venlafaxine ER 24 HR (Effexor XR 24 HR) 75 Mg Cap, 75 MG PO DAILY, #30 CAP 0 Refills 12/07/16 Physical Exam AFVSS BP 108/66 Narrative GENERAL: Well-nourished, well-developed patient. SKIN: Warm and dry. HEAD: Normocephalic and atraumatic. EYES: No scleral icterus. No injection or drainage. ENT: No nasal drainage noted. Mucous membranes pink. Airway patent. NECK: Supple, trachea midline. No JVD. CARDIOVASCULAR: Regular rate and rhythm without murmurs, gallops, or rubs. RESPIRATORY: Breath sounds equal bilaterally. No accessory muscle use. BREASTS: Bilateral exam showed no masses , no retractions, no nipple discharge. ABDOMEN/GI: Abdomen soft, non-tender, bowel sounds present, no rebound, no guarding Gravid to [-] weeks size Fundal Height: [-] GENITOURINARY: External Genitalia: intact and normal in appearance BUS glands: [-] Cervix: [-] Dilatation: [0] Effacement: [50] Station: [-3] Presentation: [-] Membranes: [intact or ruptured] Uterine Contractions: [none] FHT's: Category: [1] Baseline: [130s] Reactive: [yes] Variability: [moderate] Decels: [none] EXTREMITIES: No cyanosis or edema. BACK: Nontender without obvious deformity. No CVA tenderness. NEUROLOGICAL: Awake and alert. Motor and sensory grossly within normal limits. Five out of 5 muscle strength in all muscle groups. Normal speech. MDM Narrative Course / MDM IUP at 34w 5d, abdominal cramping. Plan Will monitor and reevaluate if contractions begin. Labor precautions. Close f/ u with OB provider encouraged. All questions answered. Diagnosis Diagnosis: Primary Impression: 34 weeks gestation of Additional Impressions: Previous section False labor before 37 completed weeks of gestation Disposition: 01 DISCHARGE HOME Condition: Good Stella Hills MD Jun 16, 2017 19:54
== END 2017-06-16 20:58 | disposition home or self-care (01) ==
LOC: HOBED 18:51
DX: O47.03 False labor before 37 completed weeks of gestation, third trimester (principal); O34.219 Maternal care for unspecified type scar from previous cesarean delivery; Z3A.34 34 weeks gestation of pregnancy
CPT/HCPCS: 59025